=== PATIENT | male | born 1985 | race African-American/Black ===

== ENCOUNTER 2017-06-30 07:56 | Emergency (ER) | payer OTHER ==
[~2017-06-30] VITALS: Ht 188 cm; Wt 79.5 kg
[2017-06-30] MEDS ORDERED: ONDANSETRON 4 MG ORAL DISINTEGRATING TAB (S0181) PO ONE (09:45)
[2017-06-30] MEDS ORDERED: ZOFR4TAB3 PO (10:10)
[2017-06-30 10:20] VITALS: BP 167/100
== END 2017-06-30 10:26 | disposition home or self-care (01) ==
LOC: M ED 07:56
DX: J02.9 Acute pharyngitis, unspecified (principal); B34.9 Viral infection, unspecified; R11.2 Nausea with vomiting, unspecified